=== PATIENT | female | born 1995 | race Caucasian/White ===

== ENCOUNTER → 2024-10-18 | Outpatient (CLI) | payer MEDICAID, SELFPAY ==
--- NOTE | 2024-10-18 16:42 | XR_ITS ---
Examination: Complete OB ultrasound greater than 14 weeks Date and time of exam: October 18, 2024 1646 hrs. Indications: Unknown size and dates Findings: Viable intrauterine single fetus with single amniotic sac presentation transverse head maternal left Cardiac motion 141 BPM Placenta posterior grade 2 Umbilical cord insertion seen Amniotic fluid index 11.2 cm Cervix 3.5 cm Ovaries obscured by bowel gas. Composite estimated gestational age based on BPD, head circumference, abdominal circumference, femur length is 22 weeks 4 days Estimated weight 488.8 g. Survey of intracranial anatomy, spinal anatomy, abdominal anatomy, four-chamber heart performed with no abnormalities identified. Impression: Viable intrauterine gestation transverse presentation Estimated gestational age 22 weeks 4 days Estimated weight 488.8 g.
== END | disposition home or self-care (01) ==
PROVIDERS: Referring Provider Obstetrics & Gynecology Gynecology; Visit Provider Obstetrics & Gynecology Gynecology
DX: O32.2XX0 Maternal care for transverse and oblique lie, not applicable or unspecified (principal); Z3A.22 22 weeks gestation of pregnancy
CPT/HCPCS: 76805